=== PATIENT | male | born 1955 | race Caucasian/White ===

== ENCOUNTER 2021-03-21 10:17 | Outpatient (REF) | payer OTHER, SELFPAY ==
--- NOTE | ~2021-03-21 | MR_ITS ---
EXAMINATION: MR KNEE WITHOUT CONTRAST, RIGHT CLINICAL INFORMATION: Medial meniscal tear at the right knee. COMPARISON: None TECHNIQUE: MRI of the knee without contrast was performed using routine sequences on a high-field scanner. FINDINGS: MENISCI: Medial Meniscus: There is a complex tear of the posterior horn and body with a dominant horizontal and radial components. The radial component extends through the majority of the meniscal cross-section. There is an associated 8 mm parameniscal cyst in this region with surrounding soft tissue edema. Margins of these tears are frayed and irregular, suggesting there is chronic and superimposed degeneration. Meniscal body is partially extruded. Lateral Meniscus: There is subtle undersurface fraying at the lateral meniscal body near the free edge. No tears. LIGAMENTS: Cruciate: The ACL is low in signal intensity with loss of normal fibular pattern as well as posterior bowing, possibly the result of a prior sprain. No acute injury is suspected. PCL is normal. Collateral: Edema signal around the MCL is likely reactive to the underlying meniscal abnormality. Collateral ligaments are intact. EXTENSOR MECHANISM: Intact. ARTICULAR CARTILAGE/BONE: Patellofemoral Compartment: There is mild chondral surface irregularity at the medial patellar facet and median ridge. At the central trochlear groove and inferior aspect of the medial trochlear facet, there are foci of full-thickness chondral fissuring and articular cortical irregularity. Medial Compartment: Mild non-uniform chondral thinning is present at the medial femoral condyle with associated subchondral edema. Additional mild non-uniform chondral thinning is present at the medial tibial plateau. Focal subchondral edema signal is present at the medial margin of the medial tibial plateau. No insufficiency fractures. Lateral Compartment: Normal. JOINT FLUID AND BURSAE: Moderate-sized joint effusion. No Sheffield's cyst. Trace prepatellar and superficial infrapatellar bursitis. MR/MR knee RT wo con IMPRESSION: 1. High-grade complex tear of the posterior horn and body of the medial meniscus. 2. Mild medial compartment osteoarthritis. Minimal patellofemoral compartment osteoarthritis. 3. Low signal intensity in the ACL and posterior bowing are suggestive of an old sprain. No acute injuries. 4. Moderate-sized joint effusion. 5. Trace prepatellar and superficial patellar bursitis.
== END 2021-03-21 10:18 | disposition home or self-care (01) ==
LOC: HO.MRI 10:17
PROVIDERS: Visit Provider Physician Assistant Medical
DX: M25.561 Pain in right knee (principal); M23.203 Derangement of unspecified medial meniscus due to old tear or injury, right knee
CPT/HCPCS: 73721

== ENCOUNTER 2021-05-06 09:51 | Outpatient (REF) | payer OTHER, SELFPAY | END 2021-05-06 09:52 | disposition home or self-care (01) | LOC: HO.HOSX 09:51 | PROVIDERS: PCP Physician Assistant Medical; Visit Provider Orthopaedic Surgery | DX: S83.241A Other tear of medial meniscus, current injury, right knee, initial encounter (principal) | CPT/HCPCS: 99202 ==

== ENCOUNTER 2021-08-29 18:00 | Outpatient (REF) | payer OTHER, SELFPAY ==
--- NOTE | ~2021-08-29 | MR_ITS ---
EXAMINATION: MR KNEE WITHOUT CONTRAST, LEFT CLINICAL INFORMATION: Left knee anterior swelling and pain. COMPARISON: None TECHNIQUE: MRI of the knee without contrast was performed using routine sequences on a high-field scanner. FINDINGS: MENISCI: Medial Meniscus: Inner margin blunting/fraying of the meniscal body and posterior horn. Lateral Meniscus: Partially discoid lateral meniscus without meniscal tearing. LIGAMENTS: Cruciate: Intact. Collateral: Intact. EXTENSOR MECHANISM: Intact. ARTICULAR CARTILAGE/BONE: Patellofemoral Compartment: Normal. Medial Compartment: Weightbearing articular cartilage signal heterogeneity and surface irregularity. Within the weightbearing aspect of the medial femoral condyle there is subchondral linear low T1/T2 signal measuring 1.0 x 1.1 cm (AP by ML) with prominent underlying marrow edema throughout the medial femoral condyle. Findings are consistent with a non-displaced subchondral fracture. Lateral Compartment: Normal. JOINT FLUID AND BURSAE: Trace joint effusion. MR/MR knee LT wo con IMPRESSION: 1. Nondisplaced subchondral fracture within the weightbearing medial femoral condyle measuring up to 1.1 cm with prominent medial femoral condyle marrow edema. Mild medial compartment osteoarthritis. Small joint effusion. 2. Inner margin blunting/fraying of the medial meniscal body and posterior horn. 3. 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
== END 2021-08-29 18:01 | disposition home or self-care (01) ==
LOC: HO.MRI 18:00
PROVIDERS: Visit Provider Physician Assistant Medical
DX: M25.562 Pain in left knee (principal); R26.2 Difficulty in walking, not elsewhere classified
CPT/HCPCS: 73721